=== PATIENT | female | born 1990 | race Caucasian/White ===

== ENCOUNTER 2022-01-05 21:53 | Emergency (ER) | payer MEDICAID | END 2022-01-06 00:30 | disposition home or self-care (01) | LOC: FB.ED 21:53 | DX: O30.002 Twin pregnancy, unspecified number of placenta and unspecified number of amniotic sacs, second trimester (principal); O99.891 Other specified diseases and conditions complicating pregnancy; R10.30 Lower abdominal pain, unspecified; Z3A.13 13 weeks gestation of pregnancy; Z88.5 Allergy status to narcotic agent; Z72.0 Tobacco use; Z88.8 Allergy status to other drugs, medicaments and biological substances | CPT/HCPCS: 81001; 99282; 99284 ==